=== PATIENT | female | born 1990 | race Caucasian/White ===

== ENCOUNTER 2020-08-02 23:26 | Inpatient (IN) ==
[2020-08-02] MEDS ORDERED: LACTATED RINGERS 1,000 ML IV SCH (23:45)
[2020-08-02] MEDS ORDERED: ONDANSETRON 4 MG/2 ML VIAL IV PRN (23:50)
[2020-08-02] MEDS ORDERED: LACTATED RINGERS 500 ML IV PRN (23:50)
[2020-08-02] MEDS ORDERED: BUTORPHANOL 2 MG/ML VIAL IV PRN (23:50)
[2020-08-02] MEDS ORDERED: MEPERIDINE 50 MG/1 ML VIAL IV PRN (23:50)
[2020-08-03] MEDS ORDERED: hydrOXYzine HCL 25 MG/1 ML VIAL IM PRN (00:16)
[2020-08-03] MEDS ORDERED: LACTATED RINGERS 1,000 ML IV ONE (00:16)
[2020-08-03] MEDS ORDERED: diphenhydrAMINE 50 MG/1 ML VIAL IV PRN ×2 (00:16)
[2020-08-03] MEDS ORDERED: ONDANSETRON 4 MG/2 ML VIAL IV ONE (00:16)
[2020-08-03] MEDS ORDERED: CITRIC ACID/SODIUM CITRATE 30 ML UDCUP PO ONE (00:16)
[2020-08-03] MEDS ORDERED: ePHEDrine 50 MG/ML VIAL IV PRN (00:16)
[2020-08-03] MEDS ORDERED: FAMOTIDINE 20 MG/2 ML VIAL IV ONE (00:16)
[2020-08-03] MEDS ORDERED: PROMETHAZINE 25 MG/1 ML VIAL IM ONE (00:16)
[2020-08-03] MEDS ORDERED: NALOXONE 0.4 MG/ML VIAL IV PRN (00:16)
[2020-08-03] MEDS ORDERED: LACTATED RINGERS 250 ML IV PRN (00:16)
[2020-08-03] MEDS ORDERED: fentaNYL 2 MCG/ROPIV 0.2% EPID 100 ML EPIDURAL SCH (00:30)
[2020-08-03] MEDS ORDERED: LACTATED RINGERS 1,000 ML IV SCH (00:30)
[2020-08-03] MEDS ORDERED: INFLUENZA VIRUS VACCINE 0.5 ML SYRINGE IM ONE (00:33)
[2020-08-03 00:41] LABS: Basophils % 0.3 % (0.0-0.8); Eosinophils # 0.2 10*3/uL (0.0-0.87); Eosinophils % 1.6 % (0.00-10.9); Hematocrit 34.7 VOL% (35.7-47.0); Hemoglobin 11.7 GM/DL (12.0-16.0); Immature Granulocytes % 1.1 %; Immature Granulocytes Absolute 0.12 #; Lymphocytes # 1.7 10*3/uL (1.4-4.0); Lymphocytes % 14.8 % (21.3-54.2); Mean Corpuscular HGB Conc 33.7 GM/DL (32-36); Mean Platelet Volume 11.5 FL (9.6-12.0); Monocytes % 7.4 % (1.7-12.7); Neutrophils % 74.8 % (38.7-73.9); Platelet Count 186 T/CUMM (130-400); Red Blood Count 3.77 MC/CUMM (3.8-5.5); Red Cell Distribution Width 14.7 % (9.3-17.3); White Blood Count 11.3 T/CUMM (4-12)
[2020-08-03 00:54] LABS: Alanine Aminotransferase 14 U/L (13-56); Albumin 2.4 G/DL (3.4-5.0); Alkaline Phosphatase 100 U/L (45-117); Aspartate Amino Transferase 22 U/L (0-37); Bilirubin,Total < 0.39 MG/DL (0.2-1.0); Blood Urea Nitrogen 9 MG/DL (7-18); Estimated Glom Filtration Rate 103 ML/MIN; Glucose 121 MG/DL (74-106); Osmolality,Calculated 274.7 MOS/KG (273-304); Total Protein 6.6 G/DL (6.4-8.3)
[2020-08-03] MEDS ORDERED: AMPICILLIN INJ 2,000 MG in SODIUM CHLORIDE 0.9% 100 ML IV ONE (01:00)
[2020-08-03 03:43] LABS: Bacteria,Urine Occasional /HPF (Few); Bilirubin,Urine Negative (Negative); Blood, Urine Negative (Negative); Calcium Oxalate Crystals,Urine Few /HPF (Few); Glucose,Urine (UA) >=500 mg/dL (Negative); Ketones,Urine 80 mg/dL (Negative); Mucus,Urine Few /LPF (Occasional); Nitrite,Urine Negative (Negative); Protein,Urine 30 MG/DL; RBC,Urine 7 /HPF (0-4); Squamous Epithelial Cell,Urine Occasional /HPF (0-10); Urine Appearance Slightly Hazy (Clear); Urine Color Yellow (Yellow); Urine Specific Gravity 1.024 (1.001-1.035); Urine Urobilinogen < 2.0 EU/DL (0.2-1.0); WBC,Urine 1 /HPF (0-6)
[2020-08-03] MEDS ORDERED: AMPICILLIN INJ 1,000 MG in SODIUM CHLORIDE 0.9% 100 ML IV SCH (05:00)
[2020-08-03] MEDS ORDERED: miSOPROStoL 200 MCG TABLET ONE (06:57)
[2020-08-03] MEDS ORDERED: TRANEXAMIC ACID 1,000 MG/10 ML VIAL ONE (06:57)
[2020-08-03] MEDS ORDERED: OXYTOCIN/LR 20 UNIT/1,000 ML BAG IV ONE ×2 (06:57→09:13)
[2020-08-03] MEDS ORDERED: METHYLERGONOVINE 0.2 MG/1 ML AMP ONE (06:58)
[2020-08-03] MEDS ORDERED: CARBOPROST TROMETHAMINE 250 MCG/ML AMP IM ONE (06:58)
[2020-08-03] MEDS ORDERED: OXYTOCIN/LR 20 UNIT/1,000 ML BAG IV SCH (07:30)
[2020-08-03] MEDS ORDERED: TERBUTALINE 1 MG/1 ML VIAL ONE (08:59)
[2020-08-03] MEDS ORDERED: TERBUTALINE 1 MG/1 ML VIAL INFILTRAT ONE (09:05)
[2020-08-03] MEDS ORDERED: miSOPROStoL 200 MCG TABLET RECTAL ONE (09:08)
[2020-08-03] MEDS ORDERED: RHO(D) IMMUNE GLOBULIN 300 MCG SYRINGE IM ONE (09:13)
[2020-08-03] MEDS ORDERED: HYDROCORTISONE 2.5% RECTAL CREAM 30 GM TUBE TOP PRN (09:13)
[2020-08-03] MEDS ORDERED: BENZOCAINE 20%/MENTHOL 0.5% SPRAY 56 GM CAN TOP PRN (09:13)
[2020-08-03] MEDS ORDERED: LANOLIN 50% CREAM 0.3 OZ TUBE TOP PRN (09:13)
[2020-08-03] MEDS ORDERED: WITCH HAZEL PADS 100/JAR TOP PRN (09:13)
[2020-08-03] MEDS ORDERED: BISACODYL 10 MG SUPP RECTAL PRN (09:13)
[2020-08-03] MEDS ORDERED: MEASLES/MUMPS/RUBELLA VACCINE 0.5 ML VIAL SUBCUT ONE (09:13)
[2020-08-03] MEDS ORDERED: ACETAMINOPHEN 325 MG TABLET PO PRN (09:13)
[2020-08-03] MEDS ORDERED: oxyCODONE/ACETAMINOPHEN 5-325 MG TABLET PO PRN ×2 (09:13)
[2020-08-03] MEDS ORDERED: ONDANSETRON 4 MG/2 ML VIAL IV PRN (09:13)
[2020-08-03] MEDS ORDERED: DIPH/TET/ACEL PERT BOOSTER VACCINE 0.5 ML VIAL IM ONE (09:13)
[2020-08-03] MEDS: IBUPROFEN 800 MG TABLET PO PRN ×2 (14:49→20:28)
[2020-08-03] MEDS: DOCUSATE SODIUM 100 MG CAPSULE PO SCH (20:28)
[2020-08-04] MEDS: IBUPROFEN 800 MG TABLET PO PRN ×2 (03:58→19:59)
[2020-08-04 06:20] LABS: Basophils % 0.2 % (0.0-0.8); Eosinophils # 0.1 10*3/uL (0.0-0.87); Eosinophils % 1.1 % (0.00-10.9); Immature Granulocytes Absolute 0.12 #; Mean Corpuscular Volume 93.8 FL (87-102); Mean Platelet Volume 11.2 FL (9.6-12.0); Monocytes % 9.9 % (1.7-12.7); Neutrophils % 71.8 % (38.7-73.9); Red Cell Distribution Width 15.1 % (9.3-17.3); White Blood Count 12.4 T/CUMM (4-12)
[2020-08-04 06:36] LABS: Hemoglobin 8.9 GM/DL (12.0-16.0); Platelet Count 137 T/CUMM (130-400); Red Blood Count 2.88 MC/CUMM (3.8-5.5)
[2020-08-04] MEDS: DOCUSATE SODIUM 100 MG CAPSULE PO SCH ×2 (09:20→21:32)
[2020-08-05 07:34] VITALS: BP 105/58
[2020-08-05] MEDS: DOCUSATE SODIUM 100 MG CAPSULE PO SCH (08:29)
== END 2020-08-05 10:35 | disposition home or self-care (01) | DRG 768 ==
LOC: N.LDOUT 23:26 → N.LD 23:27 → N.OB 08-03 13:57
PROVIDERS: ADMIT Specialist; ATTEND Specialist